=== PATIENT | female | born 1965 | race Caucasian/White ===

== ENCOUNTER 2018-12-02 14:47 | Outpatient (CLI) | payer MEDICARE, OTHER ==
[~2018-12-02 14:47] MED LIST: AMIT-189 PO; CALC-793 PO; ESTR1PAT TD; MULT1TAB74 PO; ORTHOMEGA PO; PROG100C11 PO; TESTOSTERONE VG; ZOLP5TAB2 PO; [UNRECOGNIZED DRUG - OTHER]; [UNRECOGNIZED DRUG - OTHER]; [UNRECOGNIZED DRUG - OTHER]; [UNRECOGNIZED DRUG - OTHER] PO; [UNRECOGNIZED DRUG - REMARK]
== END 2018-12-02 23:59 | disposition home or self-care (01) ==
LOC: RAD 14:47
PROVIDERS: ATTEND Internal Medicine Gastroenterology
DX: R13.10 Dysphagia, unspecified (principal); K21.9 Gastro-esophageal reflux disease without esophagitis
CPT/HCPCS: 74230

== ENCOUNTER 2023-07-20 06:48 | Emergency (ER) | payer OTHER, MEDICARE ==
[~2023-07-20] VITALS: Ht 162.6 cm; Wt 57.4 kg
[~2023-07-20 06:48] MED LIST changes: -AMIT-189 PO; +AMIT50TA15 PO; +MULT-620 PO; -MULT1TAB74 PO
[2023-07-20 06:52] VITALS: TEMP 97.7
[2023-07-20] MEDS ORDERED: PROG200C11 PO (07:01)
[2023-07-20] MEDS ORDERED: CEVI30CA7 PO (07:01)
[2023-07-20] MEDS ORDERED: AMIT150T PO (07:01)
[2023-07-20] MEDS ORDERED: BACL10TA2 PO (07:01)
[2023-07-20] MEDS ORDERED: GABA800T11 PO (07:01)
[2023-07-20] MEDS ORDERED: ZOLP10TA PO (07:01)
[2023-07-20] MEDS ORDERED: NALT50TA PO (07:01)
[2023-07-20] MEDS ORDERED: TERI14TA2 PO (07:01)
[2023-07-20] MEDS ORDERED: NITR100C11 PO (07:01)
[2023-07-20] MEDS ORDERED: TRAZ-251 PO (07:01)
[2023-07-20] MEDS ORDERED: CYCL1DRO LEFTEYE (07:02)
[2023-07-20] MEDS ORDERED: CYCL1DRO RIGHTEYE (07:02)
[2023-07-20 07:57] LABS: BASOPHILS % (AUTO) 0.1 % (0-1); EOSINOPHILS % (AUTO) 0 % (0-6); HEMATOCRIT 40.8 % (35.0-45.0); HEMOGLOBIN 13.5 g/dl (12.0-16.0); LYMPHOCYTES # (AUTO) 0.8 X10'3 (1.1-4.8); LYMPHOCYTES % (AUTO) 8.8 % (21-51); MEAN CORPUSCULAR HEMOGLOBIN 31.7 PG (27.0-31.0); MEAN CORPUSCULAR HGB CONC 33.1 g/dL (33.0-36.5); MEAN CORPUSCULAR VOLUME 95.9 FL (78-98); MONOCYTES # (AUTO) 0.3 X10'3 (0-0.9); MONOCYTES % (AUTO) 3.3 % (2-12); NEUTROPHILS # (AUTO) 7.5 X10'3 (1.8-7.7); NEUTROPHILS % (AUTO) 87.8 % (42-75); PLATELET COUNT 245 X10'3 (140-440); RED BLOOD COUNT 4.25 X10'6 (4.20-5.60); RED CELL DISTRIBUTION WIDTH 13.3 % (11.5-14.5); WHITE BLOOD COUNT 8.6 X10'3 (4.5-11.0)
[2023-07-20] MEDS: normal saline 1000ml 1,000 ML IV ONE (08:00)
[2023-07-20] MEDS: ondansetron 4mg rapidly disintigrating tab PO ONE (08:03)
[2023-07-20 08:04] LABS: ALANINE AMINOTRANSFERASE 22 U/L (12-78); ALKALINE PHOSPHATASE 90 IU/L (46-116); ANION GAP 11 (8-16); ASPARTATE AMINO TRANSFERASE 19 U/L (10-37); BILIRUBIN,TOTAL 0.5 MG/DL (0.1-1.0); BLOOD UREA NITROGEN 10 MG/DL (7-18); BUN/CREATININE RATIO 11.2 (10.0-20.0); CALCIUM 9.4 MG/DL (8.5-10.1); CHLORIDE 99 MMOL/L (99-107); CREATININE 0.89 MG/DL (0.40-0.90); GLUCOSE 140 MG/DL (70-104); POTASSIUM 3.9 MMOL/L (3.5-5.1); SODIUM 135 MMOL/L (135-145); TOTAL CARBON DIOXIDE 25.5 MMOL/L (24-32); TOTAL PROTEIN 7.9 G/DL (6.4-8.2); eCRCL 62 ML/MIN; eGFR 66 ML/MIN
[2023-07-20] MEDS: ketorolac tromethamine 15mg/ml inj. IV ONE (08:10)
[2023-07-20] MEDS: normal saline 1000ML IV soln IVB ONE (08:10)
[2023-07-20] MEDS: pantoprazole 40 MG vial IV ONE (08:10)
[2023-07-20 08:12] LABS: ETHANOL < 10 MG/DL (<10); LIPASE 33 U/L (16-77)
[2023-07-20 09:15] LABS: URINE HCG NEGATIVE (NEG)
[2023-07-20 09:20] LABS: URINE AMPHETAMINE SCREEN NEGATIVE (Neg); URINE BARBITUATE SCREEN NEGATIVE (Neg); URINE BENZODIAZEPINES SCREEN NEGATIVE (Neg); URINE CANNABINOID SCREEN POSITIVE (Neg); URINE COCAINE SCREEN NEGATIVE (Neg); URINE METHADONE SCREEN NEGATIVE (Neg); URINE PHENCYCLIDINE SCREEN NEGATIVE (Neg)
[2023-07-20 09:28] LABS: BILIRUBIN,URINE NEGATIVE (Neg); CLARITY,URINE CLEAR (Clear); COLOR,URINE YELLOW (Yellow); GLUCOSE, URINE NEGATIVE (Neg); KETONES,URINE 15 mg/dl (Neg); LEUKOCYTE ESTERASE ,URINE NEGATIVE (Neg); NITRITES, URINE POSITIVE (Neg); OCCULT BLOOD,URINE NEGATIVE (Neg); PH,URINE 7.5 (4.8-8.0); PROTEIN,URINE NEGATIVE (Neg); UROBILINOGEN,URINE 0.2 E.U/dL (0.2-1.0)
[2023-07-20 09:34] LABS: UA COLLECTION TYPE NON-SPECIFIED
[2023-07-20 09:42] LABS: SQUAMOUS EPITHELIAL CELL,UR FEW /LPF (FEW)
[2023-07-20 09:44] LABS: BACTERIA,URINE FEW /HPF (Neg); RBC,URINE NONE SEEN /HPF (0-2); TRANSITIONAL EPI CELLS,URINE FEW /HPF; WBC,URINE 0-4 /HPF (0-4)
[2023-07-20] MEDS: CefTRIAXone 2gm/D5W 50ml BAG 50 ML IV ONE (10:19)
[2023-07-20] MEDS ORDERED: ONDA4TAB12 PO (10:24)
[2023-07-20 10:57] VITALS: BP 157/103; PULSE 101; RESP 18; O2SAT 96
== END 2023-07-20 10:58 | disposition home or self-care (01) ==
LOC: ER 06:49
DX: A08.4 Viral intestinal infection, unspecified (principal); N30.10 Interstitial cystitis (chronic) without hematuria; Z79.899 Other long term (current) drug therapy; Z79.1 Long term (current) use of non-steroidal anti-inflammatories (NSAID)
CPT/HCPCS: 36415; 80053; 80305; 80320; 81001; 81025; 83690; 85025; 87088; 96361; 96365; 96375; 99285; C9113; J0696; J1885; J7030